=== PATIENT | male | born 1935 | race Caucasian/White ===

== ENCOUNTER 2016-12-16 10:13 | Emergency (ER) | payer OTHER | END 2016-12-16 12:50 | disposition home or self-care (01) | LOC: CED 10:13 | DX: S51.811A Laceration without foreign body of right forearm, initial encounter (principal); Z23 Encounter for immunization; I10 Essential (primary) hypertension; W01.0XXA Fall on same level from slipping, tripping and stumbling without subsequent striking against object, initial encounter; Y92.9 Unspecified place or not applicable | CPT/HCPCS: 12005; 90471; 90715; 99283; 99284 ==